=== PATIENT | female | born 2005 | race Caucasian/White ===

== ENCOUNTER 2025-05-30 19:18 | Outpatient (REF) | payer OTHER, SELFPAY ==
--- NOTE | ~2025-05-30 | MR_ITS ---
EXAMINATION: MR LUMBAR SPINE WITHOUT CONTRAST CLINICAL INFORMATION: 20-year-old female, low back pain 3 weeks ongoing. Cheerleader. COMPARISON: No prior examinations. TECHNIQUE: Multiplanar multisequence MR imaging of the lumbar spine was done without IV contrast. Examination was performed on a 1.5 Claudette Siemens magnet, utilizing standard sequences. FINDINGS: CORONAL ALIGNMENT: -Normal. SAGITTAL ALIGNMENT: - Normal. Normal lordosis. No subluxations. LUMBOSACRAL JUNCTION: -Normal. There are 5 [id number]-[id number] lumbar-type vertebral bodies. VERTEBRAL BODIES/BONE MARROW: -No fracture, compression deformity, abnormal bone marrow edema, or abnormal infiltrating bone marrow signal. DISCS: -Normal in height and signal throughout. SPINAL CANAL: -No abnormal developmental findings. CONUS MEDULLARIS: -Terminates at L1. Morphology and signal is normal. INTRADURAL NERVE ROOTS: - Within normal limits. Axial Disc Space Images: T12-L1: No central canal or neural foraminal narrowing. Normal facets. L1-L2: No central canal or neural foraminal narrowing. Normal facets. L2-L3: No central canal or neural foraminal narrowing. Normal facets. L3-L4: No central canal or neural foraminal narrowing. Normal facets. L4-L5: No central canal or neural foraminal narrowing. Normal facets. L5-S1: No central canal or neural foraminal narrowing. Normal facets. IMAGED SI JOINTS: -Normal in appearance. PARAVERTEBRAL AND INCLUDED EXTRASPINAL SOFT TISSUES: -Normal. No paraspinous or paravertebral edema or abnormal signal. MR/MR lumbar spine wo con IMPRESSION: Essentially normal MRI of the lumbar spine. Electronically signed by: Cj Tran MD 06/02/2025 10:41 AM EST
--- OUTSIDE RECORDS SUMMARY | 2025-05-30 20:49 | XMS_ITS | Patient Health Record ---
Author Organization [facility] Address [address] [facility] [address] [place] [address] Care Team Providers Care Casing Finisher And Stuffer Name Role Phone None, None Primary Care Provider Unavailabl e Allergies No Known Allergies Reason For Referral No Information Problems Problem Type SNOMED Code ICD Code Onset Dates Problem Status W/U Status Risk Notes Problem Anosmia (43255087) Anosmia (R43.0) Active confirmed Plan Of Treatment No Information Insurance Providers Payer Name Payer Address Payer Phone Subscriber Number Group Number Insured Name Patient Relationship to Insured Coverage Start Date Coverage End Date NE [employer] [facility] [address] [place] [phone] [id number] Timi Jimenez Self - patient is the insured 1
--- OUTSIDE RECORDS SUMMARY | 2025-05-30 20:49 | XMS_ITS | Encounter Summary ---
Author Organization [facility] Address [address] [place] [address] Care Team Providers Care Med Spec Name Role Phone Lilia Bella MD Primary Care Provider [phone] Judith Harley MD Primary Care Provider [phone] Encounter Details Date Type Department Care Team (Late st Contact Info) Description 03/17/2021 Lab Requisition [facility] [address] [place] [address] Lilia Bella MD [address] [place] [address] [phone] Encounter for general adult medical examination without abnormal findings Social History Tobacco Use Types Packs/Day Years Used Date Smoking Tobacco: Never Smokeless Tobacco: Never Comments No Sex and Gender Information Value Date Recorded Sex Assigned at Female 09/19/2018 7:00 PM EDT Legal Sex Female 5:19 AM EST Gender Identity Female 09/19/2018 7:00 PM EDT Sexual Orientation Not on file documented as of this encounter Plan of Treatment Upcoming Encounters Date Type Department Care Team (Late st Contact Info) Description 02/05/2026 9:45 AM EDT Office Visit [facility] [address] [place] [address] Judith Harley MD [address] [place] [address] [phone] In Person with Physician documented as of this encounter Procedures Procedure Name Priority Date/Time Associated Diagnosis Comments AMPLIFIED PROBE, CHLAM AND GC, URINE Routine 03/17/2021 4:08 PM EDT Encounter for general adult medical examination without abnormal findings documented in this encounter Results * Chlamydia and GC, Amplified Probe, Urine (03/17/2021 4:08 PM EDT) N. gonorrhoeae by Amplified Probe Negative Negative 03/18/2021 8:57 AM EDT [facility] C. trachomatis by Amplified Probe Negative Negative 03/18/2021 8:57 AM EDT [facility] Urine FIRST STREAM URINE SPECIMEN / Unknown 03/17/2021 4:08 PM EDT 03/17/2021 4:08 PM EDT Narrative [facility] - 03/18/2021 8:57 AM EDT This test is approved for vaginal, endocervical, thin prep and urine specimens. The reliability of testing from other sites has not been established. This assay is not intended to be used as a test of cure; a culture is suggested. Testing performed using the Shelli Divya real time PCR platform. us Lilia Bella MD MICROBIOLOGY - GENERAL ORDERAB LES Final Result [facility] [address] [place] [address], documented in this encounter Visit Diagnoses Diagnosis Encounter for general adult medical examination without abnormal findings documented in this encounter Care Teams Med Spec Relationship Specialty Start Date End Date Lilia Bella MD [address] [place] [id number] PCP - General 07/25/17 09/29/21 Judith Harley MD [address] [place] [address] PCP - General Family Practice 09/30/21 documented as of this encounter
--- OUTSIDE RECORDS SUMMARY | 2025-05-30 20:49 | XMS_ITS | Clinical Summary ---
Author Organization [facility] Address [address] [place] [address] Care Team Providers Care Machine Packer Name Role Phone Judith Harley MD Primary Care Provider [phone] Allergies No known active allergies Medications azithromycin (ZITHROMAX) 250 MG tablet Take 2 tablets by mouth on day 1, then 1 tablet by mouth daily on days 2-5 6 tablet Active Additional Information Patient not taking.Reported on 01/24/2025 Active Problems No known active problems Resolved Problems Problem Noted Date Diagnosed Date Resolved Date Anosmia 01/12/2023 01/12/2023 Immunizations Immunization Administration Dates Next Due COVID-19 Vaccine (Monthlys) Original Formulation (prior to Jun 2021) 03/20/2021,02/27/2021 DTaP Vaccine (INFANRIX/DAPTA JANETH) PEDIATRIC 04/16/2007,09/04/2004,05/07/2004,12/10,2003 HPV 9-valent (GARDASIL 9) 09/13/2016,05/05/2016, 03/17/2016 HPV Quadrivalent 09/13/2016,05/05/2016, 6 Haemophilus B Vaccine - Hib (PRP-OMP) (PEDVAXHIB 3-dose) 06/02/2004,05/07/2004,2003,07/10 Hepatitis A Vaccine (HAVRIX /VAQTA) ADULT 03/27/2018,03/21/2017 Hepatitis A Vaccine (HAVRIX/ VAQTA) PEDIATRIC 03/27/2018,03/21/2017 Hepatitis B 03/16/2004,2003,2003 Influenza Vaccine - LIVE ATT ENUATED (FLUMIST) 03/06/2020 Influenza Vaccine - PEDIATRI C SYRINGE (AFLURIA PEDI, FLUZONE PEDI) 03/21/2017,03/17/2016 Influenza Vaccine - STANDARD - SDV (FLUZONE/FLUARIX/FLULAVAL/AFLURIA) 03/27/2019,03/27/2018 MMR and Varicella Combined V accine (PROQUAD) 03/10/2005,06/02/2004 Meningococcal Quadrivalent V accine (MENACTRA) 03/27/2019,03/18/2014 PNEUMOCOCCAL CONJUGATE VACCI NE 7-VALENT <5YO IM 06/02/2004,05/07/2004,03/16/2004,09/16 Polio, Unspecified 04/16/2007, 4,2003,09/16 Poliovirus vaccine IPV (IPOL) 04/16/2007 ,05/07/2004,2003,09/16 Tdap Vaccine (BOOSTRIX/ADACEL) 03/18/2014 Varicella Vaccine (VARIVAX) 03/10/2008, 5 Family History Medical History Relation Comments Breast cancer Neg Hx Colon cancer Neg Hx Social History Tobacco Use Types Packs/Day Years Used Date Smoking Tobacco: Never Smokeless Tobacco: Never Tobacco Cessation:Counseling Given: Not Answered Alcohol Use Standard Drinks/Week Comments Not Currently 0 (1 standard drink = 0.6 oz pur e alcohol) Social Connection and Isolation Panel Answer Date Recorded In a typical week, how many times do you talk on the phone with family, friends, or neighbors? More than three times a week 01/12/2023 Frequency of Social Gatherin gs with Friends and Family Not on file 01/12/2023 Attends Taoist Services Not on file 01/12 Active Member of Clubs or Organizations Not on f ile 01/12/2023 Attends Club or Organization Meetings Not on minnie e 01/12/2023 Marital Status Not on file 01/12/2023 AUDIT-C Answer Date Recorded Q1: How often do you have a drink containing alc ohol? Monthly or less 01/12/2023 Q2: How many drinks containi ng alcohol do you have on a typical day when you are drinking? 1 or 2 01/12/2023 Q3: How often do you have si x or more drinks on one occasion? Never 01/12/2023 Humiliation, Afraid, Rape, and Kick questionnair e Answer Date Recorded Within the last year, have y ou been afraid of your partner or ex-partner? No 01/17/2025 Emotionally Abused Not on file 01/17/2025 Physically Abused Not on file 01/17/2025 Sexually Abused Not on file 01/17/2025 Overall Financial Resource Strain (CARDIA) Answe r Date Recorded How hard is it for you to pa y for the very basics like food, housing, medical care, and heating? Not hard at all 01/17/2025 Hunger Vital Sign Answer Date Recorded Within the past 12 months, y ou worried that your food would run out before you got the money to buy more. Never true 01/18/20 25 Ran Out of Food in the Last Year Not on file 01/17/2025 PRAPARE - Transportation Answer Date Re corded In the past 12 months, has l ack of transportation kept you from medical appointments or from getting medications? No 06/2024 In the past 12 months, has l ack of transportation kept you from meetings, work, or from getting things needed for daily living? No 01/17/2025 Housing Stability Vital Sign Answer Nicholas e Recorded In the last 12 months, was t here a time when you were not able to pay the mortgage or rent on time? No 01/17/2025 Number of Times Moved in the Last Year Not on fi le 01/17/2025 At any time in the past 12 m [facility], were you homeless or living in a long-term (including now)? No 01/17/2025 [facility] Utilities Answer Date Recorded In the past 12 months has th e electric, gas, oil, or water company threatened to shut off services in your home? No 01/17/2025 Food Insecurity Answer Date Recorded Within the past 12 months, y ou worried that your food would run out before you got the money to buy more. Never true 01/18/20 25 Ran Out of Food in the Last Year Not on file 01/17/2025 Intimate Partner Violence Answer Date R ecorded Emotionally Abused Not on file 01/17/2025 Within the last year, have y ou been afraid of your partner or ex-partner? No 01/17/2025 Physically Abused Not on file 01/17/2025 Sexually Abused Not on file 01/17/2025 Housing Stability Answer Date Recorded Unstable Housing in the Last Year Not on file 01/17/2025 In the last 12 months, was t here a time when you were not able to pay the mortgage or rent on time? No 01/17/2025 [address] of Places Lived in the Last Year Not on f ile 01/17/2025 AUDIT C Answer Date Recorded How often have you had a dri nk containing alcohol, in the past year? 2 01/17/2025 How many standard drinks con taining alcohol have you had on a typical day when you are drinking, in the past year? 0 0 01/17/2025 How often have you had six o r more drinks on one occasion, in the past year? 0 01/17/2025 Comments No Sex and Gender Information Value Date Recorded Sex Assigned at Female 09/19/2018 7:00 PM EDT Legal Sex Female 5:19 AM EST Gender Identity Female 09/19/2018 7:00 PM EDT Sexual Orientation Not on file Last Filed Vital Signs Vital Sign Reading Time Taken Comments Blood Pressure 92/60 01/24/2025 11:27 AM EDT Pulse 73 01/24/2025 11:27 AM EDT Temperature 36.8 C (98.2 F) 05/15/2024 4:00 PM EST Respiratory Rate 16 05/15/2024 4:00 PM EST Oxygen Saturation 99% 01/24/2025 11:27 AM EDT Inhaled Oxygen Concentration - - Weight 50.8 kg (112 lb) 01/24/2025 11:27 AM EDT Height 152.4 cm (5') 01/24/2025 11:27 AM EDT Body Mass Index 21.87 01/24/2025 11:27 AM EDT Plan of Treatment Upcoming Encounters Date Type Department Care Team (Late st Contact Info) Description 02/05/2026 9:45 AM EDT Office Visit [address] [place] [address] Judith Harley MD [address] [place] [phone] In Person with Physician Health Maintenance Due Date Last Done Comments Meningococcal B Vaccines (1 of 2 - Standard) 2019 Hepatitis C Screening 2021 Chlamydia and Gonorrhea Screening 03/17/2022 03/17/2021, 03/27/2019 Cervical Cancer Screening 2024 Pap Smear 2024 DTaP,Tdap,and Td Vaccines (7 - Td or Tdap) 03/18/2024 03/18/2014, 04/16/2007, 09/04/2004, Additional history exists COVID-19 Vaccine ( - season) 2025 03/20/2021, 02/27/2021 Influenza Vaccine (#1) 2025 , 03/27/2019, 03/27/2018, Additional history exists Depression Screening 01/17/2026 01/17/2025, 01/16/2024, 01/12/2023 Blood Pressure 01/24/2029 01/24/2025 Pneumococcal Vaccine Aged Out 06/02/2004, 05/07/2004, 03/16/2004, Additional history exists No longer eligible based on patient's age to complete this topic Meningococcal Vaccines Completed 03/27/2019, 2013 Procedures Procedure Name Priority Date/Time Associated Diagnosis Comments AMPLIFIED PROBE, CHLAM AND GC, URINE Routine 03/17/2021 4:08 PM EDT Encounter for general adult medical examination without abnormal findings from Last 3 Months or Most Recently Relevant to Health Maintenance Results * Chlamydia and GC, Amplified Probe, Urine (03/17/2021 4:08 PM EDT) N. gonorrhoeae by Amplified Probe Negative Negative 03/18/2021 8:57 AM EDT [facility] C. trachomatis by Amplified Probe Negative Negative 03/18/2021 8:57 AM EDT [facility] Urine FIRST STREAM URINE SPECIMEN / Unknown 03/17/2021 4:08 PM EDT 03/17/2021 4:08 PM EDT Narrative [facility] - 03/18/2021 8:57 AM EDT This [...] MICROBIOLOGY - GENERAL ORDERAB LES Final Result [facility] [address] [place] [address], from Last 3 Months or Most Recently Relevant to Health Maintenance Insurance MULT[employer] MULTIPL[employer] M[employer] MULT[employer]LAN Care Teams Machine Packer Relationship Specialty Start Date End Date Judith Harley MD [address] [place] [address] PCP - General Family Practice 09/30/21
--- OUTSIDE RECORDS SUMMARY | 2025-05-30 20:49 | XMS_ITS | Encounter Summary ---
Author Organization [facility] Address [address] [place] [address] Care Team Providers Care Glue Spreader Name Role Phone Lilia Bella MD Primary Care Provider Judith Harley MD Primary Care Provider [phone] Encounter Details Date Type Department Care Team (Late st Contact Info) Description 03/31/2020 Lab Requisition [facility] [address] [place] [address] Lilia Bella MD [address] [place] [address] Encounter for screening for other infectious and parasitic diseases Social History Tobacco Use Types Packs/Day Years [...] Description 02/05/2026 9:45 AM EDT Office Visit [facility] [address] [place] [address] Judith Harley MD [address] [place] [address] [phone] In Person with Physician documented as of this encounter Visit Diagnoses Diagnosis Encounter for screening for other infectious and parasitic diseases documented in this encounter Additional Health Concerns Infection Onset Date Last Indicated Resolved Time COVID Suspect 06/27/2020 06/27/2020 06/29/2020 9:5 1 PM EST COVID Positive 06/27/2020 06/27/2020 07/27/2020 12 :26 AM EST documented as of this encounter Care Teams Glue Spreader Relationship Specialty Start Date End Date Lilia Bella MD [address] [place] [address] PCP - General 07/25/17 09/29/21 Judith Harley MD [address] [place] [address] PCP - General Family Practice 09/30/21 documented as of this encounter
== END 2025-05-30 19:19 | disposition home or self-care (01) ==
LOC: HO.MRI 19:18
PROVIDERS: PCP Family Medicine; Visit Provider Family Medicine
DX: M54.50 Low back pain, unspecified (principal)
CPT/HCPCS: 72148

== ENCOUNTER → 2025-05-30 19:31 | Outpatient (BNV) | payer OTHER, SELFPAY | PROVIDERS: PCP Family Medicine; Visit Provider Radiology Diagnostic Radiology | DX: M54.50 Low back pain, unspecified (principal) | CPT/HCPCS: 72148 ==